=== PATIENT | female | born 1950 | race Caucasian/White ===

== ENCOUNTER → 2016-06-29 | Outpatient (CLI) | payer MEDICARE, OTHER | LOC: GMA 12:37 | PROVIDERS: ATTEND Nurse Practitioner Family | DX: D50.0 Iron deficiency anemia secondary to blood loss (chronic) (principal) ==

== ENCOUNTER → 2016-08-17 | Outpatient (CLI) | payer MEDICARE, OTHER | LOC: GMA 11:47 | PROVIDERS: ATTEND Nurse Practitioner Family | DX: D50.0 Iron deficiency anemia secondary to blood loss (chronic) (principal); R53.82 Chronic fatigue, unspecified; R53.83 Other fatigue; E53.9 Vitamin B deficiency, unspecified ==

== ENCOUNTER → 2016-11-12 | Outpatient (CLI) | payer MEDICARE, OTHER | LOC: GMA 10:14 | PROVIDERS: ATTEND Nurse Practitioner Family | DX: E53.8 Deficiency of other specified B group vitamins (principal); D50.0 Iron deficiency anemia secondary to blood loss (chronic); R53.83 Other fatigue; I10 Essential (primary) hypertension ==

== ENCOUNTER → 2017-04-17 | Outpatient (CLI) | payer MEDICARE, OTHER | END | disposition home or self-care (01) | LOC: GMAJ 10:43 | PROVIDERS: ATTEND Family Medicine | DX: E53.8 Deficiency of other specified B group vitamins (principal) ==

== ENCOUNTER → 2017-07-30 | Outpatient (CLI) | payer MEDICARE, OTHER ==
--- NOTE | 2017-08-04 19:58 | MAM ---
EXAM DESCRIPTION: 3D Screening BILATERAL : Digital Mammography. CLINICAL HISTORY: 67 years Female SCREENING . No complaints. No family history of breast cancer. Postmenopausal. HRT 5 or more years ago. COMPARISON: 2-D digital screening bilateral study 05/20/2013. No prior reports available. TECHNIQUE: Bilateral CC and MLO projection full-field images, 3-D tomosynthesis digital mammographic technique. Also bilateral synthesized CC/ MLO full-field images. CAD not utilized. FINDINGS: The breast parenchymal density pattern is: Scattered areas of fibroglandular density. No skin thickening or nipple retraction bilateral vascular calcifications. Bilateral solitary microcalcifications.. No focal, stellate mass or density, focal asymmetry , and no suspicious microcalcifications bilaterally. Stable mammograms compared to prior study, taking into account differences in mammographic technique IMPRESSION: BI-RADS CATEGORY: 2 - BENIGN FINDINGS. FOLLOW UP: Routine digital bilateral screening, one year interval from July 2017. Written communication explaining the IMPRESSION and follow-up, will be mailed to the patient and referring health care provider. According to the [employer], yearly mammograms are recommended starting at age 40 and continuing as long as a woman is in good health. Any breast change noted on a breast self-exam should be reported promptly to the patient's healthcare provider. Breast MRI is recommended for women with an approximately 20-25% or greater lifetime risk of breast cancer, including women with a strong family history of breast or ovarian cancer and women who have been treated for Hodgkin's disease. A negative mammographic report should not delay tissue diagnosis in patients with significant clinical history or physical findings. Extremely dense breast tissue limits the sensitivity of digital mammography. Electronically signed by: Modesto Ray MD 08/04/2017 7:57 PM [employer]
== END ==
LOC: MAMMO 13:29
PROVIDERS: ATTEND Family Medicine
DX: Z12.31 Encounter for screening mammogram for malignant neoplasm of breast (principal)

== ENCOUNTER → 2017-12-09 | Outpatient (CLI) | payer MEDICARE, OTHER ==
--- NOTE | 2017-12-09 10:43 | MRI ---
EXAM DESCRIPTION: Lumbar Spine w/o Contrast : Magnetic Resonance Imaging. CLINICAL HISTORY: INTERVERTEBRAL DISC DISORDERS W RADICULOPATHY COMPARISON: MRI scan of the brain without contrast today and CT scan lumbar spine 03/26/2016 TECHNIQUE: Multiplanar, multiple standard sequences, non contrast MRI, lumbar spine. FINDINGS: 6 lumbar vertebra. L6- S1 disc space on axial T2 sequence image 3. L5- L6 disc space on the same axial sequence, image 8. Posterior bilateral fusion construct L5-L6-S1, with the bilateral screws in the L5 and S1 pedicles. Minimal soft tissue edema on the STIR sequence posterior to the hardware bilaterally. No fluid collections within the canal or outside the canal. L6-S1: Marked disc space loss. Interbody fusion device and partial osseous fusion. No fluid signal. Grade 1 to grade 2 anterolisthesis stable since prior scan. Posterior decompression. No canal stenosis. Bilateral foraminal stenosis. L5-L6: Interbody fusion device. Grade 1 retrolisthesis. No fluid signal in the disc space. Bilateral moderate neural foraminal narrowing. Posterior decompression. L4-L5: Disc desiccation anterior bulge. Posterior bulge broad-based 4 mm abutting the thecal sac and the descending L5 nerves in the midline into the left of midline with partial effacement of the left subarticular recess. Moderate canal narrowing. Left foraminal stenosis. Moderate to severe right foraminal narrowing. Bilateral facet arthrosis and flavum ligament hypertrophy. L3-4: Disc desiccation and Schmorl's node inferior L3 endplate. Anterior bulging with spurs. Posterior broad-based 4 mm bulge. Bilateral flavum ligament hypertrophy and facet arthrosis. AP canal diameter 11 mm. Bilateral mild foraminal narrowing. L2-3: Disc space preserved with minimal posterior disc bulge. Bilateral flavum ligament hypertrophy and facet arthrosis. Mild canal narrowing. Mild left foraminal narrowing. L1-2: Normal signal in the disc with no bulging. Canal and foramina are patent. Conus terminates just above the disc space. Minimal bilateral facet arthrosis. T12-L1: Normal signal in the disc with minimal posterior bulge. Schmorl's nodes superior T12 endplate. Mild canal narrowing. Bilateral foramina are patent. Posterior elements unremarkable. Mild L1-L4 levoscoliosis. Reduced lordosis. Paravertebral soft tissues paraspinal muscle atrophy.. Normal marrow signal in the remaining vertebral bodies and the posterior elements. Vertebral bodies are not compressed at any level. IMPRESSION: 1. 6 lumbar vertebra, consistent with findings on prior lumbar CT scan 03/26/2016. 2. Posterior bilateral L5-S1 fusion construct with no bone or hardware complications, no fluid collections. Stable since 2016. 3. Grade 2 anterolisthesis L6 to S1 with interbody fusion device and partial osseous fusion. Posterior decompression. Bilateral foraminal stenosis. Stable since the CT scan. 4. Mild retrolisthesis L5 to L6 with interbody fusion device. Posterior decompression. Bilateral moderate neural foraminal narrowing stable. 5. Posterior broad-based L4-L5 disc bulge abutting the thecal sac and ascending L5 nerves and partial effacement of the left subarticular recess. This may be new since the prior CT scan. Correlate for left L5 radiculopathy. 6. Posterior broad-based L3-4 disc bulge and moderate canal narrowing mild bilateral foraminal narrowing. Electronically signed by: Modesto Ray MD 12/09/2017 10:42 AM CDT
--- NOTE | 2017-12-09 10:57 | MRI ---
EXAM DESCRIPTION: Brain w/o Contrast: MRI. CLINICAL HISTORY: LOCAL-REL SYMPTC EPI W CMPLX SEIZE, NTRCTN W/O STAT EPI COMPARISON: MRI scan lumbar spine on this visit. CT scan of the head without contrast 03/26/2016. TECHNIQUE: Multiplanar, high-field MRI unit, multiple diffusion sequences, multiple conventional sequences without contrast. Minimal technical limitations of the study due to patient head motion on most sequences. FINDINGS: Large confluent regions of abnormal hyperintense FLAIR and T2-weighted signal in the periventricular white matter, much more than gutierrez-white matter junctions of the cerebral hemispheres. Also minimal involvement of the bilateral temporal lobes. No diffusion restriction or mass effect.. Bilateral involvement of the basal ganglia. More on the left than right. No hemorrhage, no cerebral edema, no mass-effect. Normal signal in the brainstem and cerebellar hemispheres. No hemorrhage, no cerebral edema, no mass-effect. Concordance of the diffusion and non-diffusion sequences with no diffusion restriction. Cortical sulci, ventricles, and other CSF spaces, and the subdural spaces are normally configured. No effacement or displacement. No midline shift. No extra-axial hemorrhage. Normal flow signal void in the major vessels of the [place], and the venous sinuses. IACs are symmetric bilaterally. Normal signal in the bilateral mastoid air cells. No mass effect in the bilateral cerebellopontine angles. Pituitary gland occupies most of the sella. Base of the cerebellar tonsils is at the level of the the foramen magnum. Minimal mucosal thickening ethmoid and frontal paranasal sinuses no air fluid levels. The bony calvarium is intact. IMPRESSION: Prominent confluent bilateral hyperintense T2 weighted and FLAIR signal in the periventricular white matter with only minimal involvement of the subcortical white matter and minimal involvement also in the temporal lobe. Lesions also in the basal ganglia more left than right. No diffusion restriction, hemorrhage mass effect or shift or cerebral edema. This could represent cerebral microvascular disease, demyelinating process, vasculitis, or inflammatory process. Also consider leukodystrophies such as metachromatic type, adult onset, with tigroid/leopard spots in WM on FLAIR and T2 sequences, sparing of the basal ganglia. Minimal central or cortical atrophy. No diffusion restriction hemorrhage or mass effect elsewhere in the brain. Electronically signed by: Modesto Ray MD 12/09/2017 10:55 AM CDT
== END ==
LOC: MRI 08:00
PROVIDERS: ATTEND Psychiatry & Neurology Neurology
DX: G40.219 Localization-related (focal) (partial) symptomatic epilepsy and epileptic syndromes with complex partial seizures, intractable, without status epilepticus (principal); M51.16 Intervertebral disc disorders with radiculopathy, lumbar region; M25.511 Pain in right shoulder; Z98.1 Arthrodesis status

== ENCOUNTER → 2018-06-11 | Outpatient (CLI) | payer MEDICARE, OTHER | LOC: GMAHI 15:45 | PROVIDERS: ATTEND Nurse Practitioner Family | DX: R10.84 Generalized abdominal pain (principal) ==

== ENCOUNTER → 2018-07-18 | Outpatient (CLI) | payer MEDICARE, OTHER ==
--- NOTE | 2018-07-18 10:01 | RAD ---
EXAM DESCRIPTION: Shoulder,Right 2 or More Views CLINICAL HISTORY: RIGHT SHOULDER PAIN COMPARISON: None Available. TECHNIQUE: Four views right shoulder FINDINGS: Four views of the right shoulder demonstrate a reverse shoulder prosthesis in place with articulation of the humeral with the glenoid prosthesis. The distal clavicle has been resected with an approximate 2.5 cm gap between the clavicle and the acromion. The chest wall is intact. No dislocation is seen. Incidental note of previous fixation of the lower cervical spine anteriorly is noted as well. On multiple views there is significant lucency between the humeral head, and the metaphysis of the proximal humerus raising the possibility of loosening of this component of the prosthesis. IMPRESSION: 1. Reverse shoulder prosthesis in place with satisfactory alignment. Lucency deep to the humeral head, just possibility of loosening of this component of the prosthesis. Electronically signed by: Eugene Mendez MD 07/18/2018 9:59 AM [facility]
== END ==
LOC: RAD 09:02
PROVIDERS: ATTEND Orthopaedic Surgery
DX: M25.511 Pain in right shoulder (principal); Z96.611 Presence of right artificial shoulder joint

== ENCOUNTER → 2018-08-28 | Outpatient (CLI) | payer MEDICARE, OTHER | LOC: LAB.O 10:36 | PROVIDERS: ATTEND Orthopaedic Surgery | DX: M25.511 Pain in right shoulder (principal) ==

== ENCOUNTER → 2018-10-08 | Outpatient (CLI) | payer MEDICARE, OTHER | LOC: GMAHI 16:48 | PROVIDERS: ATTEND Nurse Practitioner Family | DX: D50.0 Iron deficiency anemia secondary to blood loss (chronic) (principal) ==

== ENCOUNTER 2018-11-10 15:50 | Emergency (ER) | payer MEDICARE, OTHER ==
--- NOTE | 2018-11-10 16:16 | ED.PDOC ---
History of Present Illness - General Chief Complaint: Lower Extremity Injury Stated Complaint: was airing up a small tire and it blew up Time Seen by Provider: 11/10/18 16:14 Source: patient Exam Limitations: no limitations - History of Present Illness Initial Comments: Patient presents with a laceration to her left lower leg. She reports airing up a tire and it "blew up". She is not sure what she was struck by. She has pain in the left anterior lower leg where the laceration is. No other injuries. Timing/Duration: 1-3 hours Severity: moderate Improving Factors: nothing Worsening Factors: nothing Associated Symptoms: denies symptoms Allergies/Adverse Reactions: Allergies NO KNOWN ALLERGY Allergy (Verified 03/09/13 11:01) Home Medications: Ambulatory Orders Duloxetine HCl [Cymbalta] 60 mg PO HS #0 03/13/13 Esomeprazole Magnesium [Nexium] 40 mg PO DAILY #0 03/13/13 Lamotrigine [Lamictal Xr] 200 mg PO BID #0 03/13/13 Aspirin [Aspirin Adult Low Dose] 81 mg PO DAILY 09/02/14 Carvedilol [Coreg] 6.25 mg PO BID 09/02/14 Cyclobenzaprine HCl 10 mg PO PRN 09/02/14 amLODIPine BESYLATE [Norvasc] 5 mg PO DAILY 09/02/14 busPIRone HCL [Buspar] 15 mg PO BID 09/02/14 Icxzeiaxekeqi-Rdil-Niczkfbmlk [Fioricet] 1 ea PO Q8H PRN #21 tab 02/24/16 Review of Systems - Review of Systems Constitutional: States: no symptoms reported EENTM: States: no symptoms reported Respiratory: States: no symptoms reported Cardiology: States: no symptoms reported Gastrointestinal/Abdominal: States: no symptoms reported Genitourinary: States: no symptoms reported Musculoskeletal: States: no symptoms reported Neurological: States: see HPI Endocrine: States: no symptoms reported Hematologic/Lymphatic: States: no symptoms reported Past Medical History (General) - Patient Medical History Hx Seizures: Yes Hx Stroke: No Hx Dementia: No Hx Asthma: No Hx of COPD: No Hx Cardiac Disorders: No Hx Congestive Heart Failure: No Hx Pacemaker: No Hx Hypertension: Yes Hx Thyroid Disease: No Hx Diabetes: No Hx Gastroesophageal Reflux: No Hx Renal Disease: No Hx Cancer: No Hx of HIV: No Hx Hepatitis C: No Hx MRSA: No - Vaccination History Hx Tetanus, Diphtheria Vaccination: No Hx Influenza Vaccination: No Hx Pneumococcal Vaccination: No - Social History Hx Tobacco Use: No Hx Alcohol Use: No Hx Substance Use: No Hx Substance Use Treatment: No Hx Depression: No Hx Physical Abuse: No Hx Emotional Abuse: No - Female History Patient is a Female of Child Bearing Age (10 -59 yrs old): No Family Medical History - Family History Mother Family History: Unknown Physical Exam - Physical Exam General Appearance: Obvious distress Respiratory: lungs clear, normal breath sounds Cardiovascular/Chest: normal peripheral pulses, regular rate, rhythm Peripheral Pulses: popliteal,left: 2+, dorsalis pedis,right: 2+, dorsalis pedis,left: 2+, posterior tibialis,right: 2+, posterior tibialis,left: 2+ Gastrointestinal/Abdominal: normal bowel sounds, non tender, soft Extremity: other - Full sensation in entire left lower limb and foot. 2+ pulses. Normal color and tone. Full AROM of the left toes, foot, and lower leg. 6 cm curvelinear laceration on the anterior middle 1/3 of the left lower leg, 1 cm in width, depth to adipose tissue. There is also a 2 cm oblique laceration just inferior to the larger one. Both are seeping blood. Neurologic: no motor/sensory deficits, alert, normal mood/affect Progress - Progress Progress: 11/10/18 18:55 Radiographs of the lower leg showed no bony abnormality nor fracture. There was soft tissue damage with debris. The 6 cm wound was prepped and draped in a sterile fashion. 10 cc of lidocaine with epinephrine were injected into the wound edges and excellent local anesthesia obtained. The wound was irrigated with 500 cc sterile NS. It was then debrided using a sterile Hib[place] brush and visible debris removed with fine forceps. The wound edges were approximated with 12 interrupted sutures using 4-0 proline. The 2 cm wound was prepped and draped in a sterile fashion. 3 cc of lidocaine with epinephrine were used to gain excellent local anesthesia. The wound was irrigated with 100 cc sterile NS. Three interrupted sutures using 4-0 Proline were used to approximate the wound edges. Patient tolerate procedure well. Three silver nitrate applications were also made to the site because of a small arteriole that was seeping. Wounds were cleaned and dressed. I spoke with Dr. Cronin who agreed to see the patient in clinic tomorrow morning for follow up or revision if necessary. Patient was given Toradol 30 mg IM x one and hydrocodone 10/325 po x one in the E.R. Sent home with Tylenol #3. Instructed to keep the leg elevated tonight and to use ice to the wound area. 11/10/18 19:13 Departure - Departure Clinical Impression: Laceration Disposition: Discharge to Home or Self Care Condition: Fair Departure Forms: ED Discharge - Pt. Copy, Patient Portal Self Enrollment Instructions: Acute Compartment Syndrome (DC), Laceration Repair With Stitches (DC) Diet: resume usual diet Activity: increase activity as tolerated Referrals: Kal Ryan MD [Primary Care Provider] - 1-2 Weeks Home Medications: Ambulatory Orders Duloxetine HCl [Cymbalta] 60 mg PO HS #0 03/13/13 Esomeprazole Magnesium [Nexium] 40 mg PO DAILY #0 03/13/13 Lamotrigine [Lamictal Xr] 200 mg PO BID #0 03/13/13 Aspirin [Aspirin Adult Low Dose] 81 mg PO DAILY 09/02/14 Carvedilol [Coreg] 6.25 mg PO BID 09/02/14 Cyclobenzaprine HCl 10 mg PO PRN 09/02/14 amLODIPine BESYLATE [Norvasc] 5 mg PO DAILY 09/02/14 busPIRone HCL [Buspar] 15 mg PO BID 09/02/14 Yowkhvtbgsmoj-Gijx-Ksdzmhayid [Fioricet] 1 ea PO Q8H PRN #21 tab 02/24/16 Additional Instructions: Call Dr. Cronin's office in the morning and see him for a follow up. Elevate the leg tonight while sleeping. Use ice to the wound areas on top of the bandages. Take pain medication as prescribed. Return to the E.R. for loss of sensation in the left lower leg or foot or for pale color.
[2018-11-10] MEDS ORDERED: KETOROLAC TROMETHAMINE INJ 30 MG/ML VIAL ONE (16:20)
--- NOTE | 2018-11-10 16:20 | RAD ---
EXAM DESCRIPTION: Tibia/Fibula,Left CLINICAL HISTORY: laceration COMPARISON: 10 March 2013 TECHNIQUE: 2 views left FINDINGS: A left total knee arthroplasty is observed in place. Small metallic foreign bodies are observed in the medial soft tissues of the lower leg. There is evidence of a soft tissue laceration. No bone abnormality is seen. IMPRESSION: A soft tissue wound is observed medially and anteriorly with debris in the wound. No bony injury is seen. Electronically signed by: Ren Harris MD 11/10/2018 4:17 PM CDT
[2018-11-10] MEDS ORDERED: CHLORHEXIDINE GLUCONATE 4 % 15 ML UD TOP ONE ×3 (16:23→18:09)
[2018-11-10] MEDS: KETOROLAC TROMETHAMINE INJ 30 MG/ML VIAL IM ONE (16:26)
[2018-11-10] MEDS: TETANUS,DIPHTHERIA,PERTUSSIS 1 EA SYG IM ONE (16:52)
[2018-11-10] MEDS: CEPHALEXIN MONOHYDRATE 250 MG CAP PO ONE (17:59)
[2018-11-10] MEDS: HYDROcodone 10MG/APAP 325MG 1 EA TAB PO ONE (18:03)
[2018-11-10] MEDS ORDERED: NEOMYCIN-BACITRACIN-POLYMYXIN 0.9 GM UD TOP ONE ×2 (18:47→19:23)
[2018-11-10 19:13] VITALS: O2SAT 98
[2018-11-10] MEDS: ACETAMINOPHEN W/COD #3 TAB (ER Disp) PO ONE (19:39)
[2018-11-10 20:11] VITALS: BP 154/92; TEMP 98.1
== END 2018-11-10 20:11 | disposition home or self-care (01) ==
LOC: ER 15:50
DX: S81.812A Laceration without foreign body, left lower leg, initial encounter (principal); I10 Essential (primary) hypertension; R56.9 Unspecified convulsions; Z79.899 Other long term (current) drug therapy; Z79.82 Long term (current) use of aspirin; W22.8XXA Striking against or struck by other objects, initial encounter; Y92.9 Unspecified place or not applicable
CPT/HCPCS: 73590; 90471; 90715; J1885

== ENCOUNTER 2018-11-21 | Emergency (ER) | payer MEDICARE, OTHER | END 2018-11-21 23:44 | disposition home or self-care (01) | CPT/HCPCS: 36415; 73700; 80053; 83605; 85025; 87040; 87205; 94760; J2270 ==

== ENCOUNTER → 2019-01-12 | Outpatient (CLI) | payer MEDICARE, OTHER | LOC: GMAJ 19:32 | PROVIDERS: ATTEND Family Medicine | DX: D50.0 Iron deficiency anemia secondary to blood loss (chronic) (principal); E78.2 Mixed hyperlipidemia; I10 Essential (primary) hypertension ==

== ENCOUNTER → 2019-12-29 | Outpatient (CLI) | payer MEDICARE, OTHER ==
--- NOTE | 2019-12-30 08:40 | CT ---
Study: CT of the Left Hip. Indication: PAIN IN LEFT LEG Technique: Axial CT images were acquired through the left hip without intravenous contrast. Coronal and sagittal reformats performed. This exam was performed according to our departmental dose-optimization program, which includes automated exposure control, adjustment of the mA and/or kV according to patient size and/or use of iterative reconstruction technique. Comparison: None. Findings: Lumbosacral fusion construct. Moderate left sacroiliac joint osteoarthritis. A likely remote left pubic root fractures noted with mild cortical thickening and sclerosis at this site. No acute fracture of the left hip identified. Osteopenia. Moderate left hip osteoarthritis present with joint space narrowing, small osteochondral multifocal cystic change of the anterior anterior superior acetabulum. Moderate pubic symphysis osteoarthritis. Small fat-containing left inguinal hernia. 2.7 cm indeterminate cystic left ovarian lesion. Impression: No acute fracture of the left hip identified. Evaluation is limited given the degree of osteopenia. If high clinical concern for nondisplaced fracture, correlation with bone scan or MRI recommended. Suspected remote left pubic root fracture. Moderate left and osteoarthritis. 2.7 cm indeterminate cystic left ovarian lesion. Further characterization with pelvic sonogram recommended. Additional findings as above. Electronically signed by: Leon Morgan MD 12/30/2019 8:38 AM CDT
== END ==
LOC: CT 15:00
PROVIDERS: ATTEND Family Medicine
DX: M16.12 Unilateral primary osteoarthritis, left hip (principal); N83.9 Noninflammatory disorder of ovary, fallopian tube and broad ligament, unspecified; K40.90 Unilateral inguinal hernia, without obstruction or gangrene, not specified as recurrent; M89.9 Disorder of bone, unspecified; M85.9 Disorder of bone density and structure, unspecified; M47.898 Other spondylosis, sacral and sacrococcygeal region; Z98.1 Arthrodesis status

== ENCOUNTER → 2020-06-16 | Outpatient (CLI) | payer MEDICARE, OTHER ==
--- NOTE | 2020-06-16 14:45 | RAD ---
EXAM DESCRIPTION: Shoulder,Right 2 or More Views CLINICAL HISTORY: 70 years Female, SHOULDER PAIN COMPARISON: 07/18/2018 Findings: Four view(s)/radiograph(s) Reverse right shoulder arthroplasty. Distal clavicular resection. Increased lucency at the proximal aspect of the humeral component. No acute fracture identified. No dislocation. Visualized chest is clear. IMPRESSION: Reverse right shoulder arthroplasty with increased lucency at the proximal humerus component which may indicate loosening. Electronically signed by: Nico Hutchison MD 06/16/2020 2:43 PM [facility]
== END ==
LOC: RAD 08:20
PROVIDERS: ATTEND Orthopaedic Surgery
DX: M25.511 Pain in right shoulder (principal); R93.7 Abnormal findings on diagnostic imaging of other parts of musculoskeletal system; Z98.890 Other specified postprocedural states; Z96.611 Presence of right artificial shoulder joint